=== PATIENT | female | born 1955 | race Caucasian/White ===

== ENCOUNTER 2017-12-29 15:14 | Outpatient (CLI) | payer BC | END 2017-12-29 15:15 | disposition home or self-care (01) | LOC: BICMAMMO 15:14 | PROVIDERS: ATTEND Family Medicine | DX: Z12.31 Encounter for screening mammogram for malignant neoplasm of breast (principal); Z80.3 Family history of malignant neoplasm of breast | CPT/HCPCS: 77063; 77067 ==

== ENCOUNTER 2019-06-14 07:15 | Emergency (ER) | payer BC ==
--- NOTE | 2019-06-14 08:26 | CT ---
CT BRAIN WITHOUT CONTRAST: HISTORY: Trauma, headache FINDINGS: No evidence of acute infarct, hemorrhage, midline shift or abnormal extra-axial fluid collections is seen. The ventricular size is appropriate and the basilar cisterns are patent. The bony calvarium is intact. The visualized paranasal sinuses and mastoid air cells are well aerated. There is a scalp contusion in the right frontal region. IMPRESSION: No CT evidence of acute intracranial process.
--- NOTE | 2019-06-14 08:28 | CT ---
CT CERVICAL SPINE WITH CORONAL AND SAGITTAL REFORMATIONS AND NO IV CONTRAST: HISTORY: Fall, neck pain FINDINGS: Multilevel degenerative changes are present. No fracture, subluxation or facet malalignment is identified. No prevertebral soft tissue swelling is apparent. The visualized lung apices are unremarkable. IMPRESSION: No CT evidence for fracture or traumatic subluxation.
[2019-06-14] MEDS ORDERED: Acetaminophen 325 MG TAB ONE (08:34)
[2019-06-14] MEDS ORDERED: Adacel (T-DAP) 0.5 ML SYRINGE ONE (08:34)
--- NOTE | 2019-06-14 08:54 | RAD ---
TWO VIEWS OF THE LEFT FOREARM: DATE: 06/14/2019. COMPARISON: None. HISTORY: Fall, trauma, pain. FINDINGS: No displaced fracture or evidence of dislocation. IMPRESSION: No acute osseous abnormality. POS: [facility]
--- NOTE | 2019-06-14 08:54 | RAD ---
FOUR VIEWS OF THE LEFT KNEE: DATE: 06/14/2019. COMPARISON: None. HISTORY: Fall, trauma, pain. FINDINGS: There is no knee joint effusion, displaced fracture, or evidence of dislocation. IMPRESSION: No acute fracture or dislocation. POS: [facility]
--- NOTE | 2019-06-14 08:55 | RAD ---
LEFT HAND 3 VIEWS: DATE: 06/14/2019. COMPARISON: None. HISTORY: Fall, trauma, pain. FINDINGS: Scattered areas of degenerative change are noted within the 2nd through 5th fingers with areas of an nt space narrowing and osteophyte formation. No displaced fracture or dislocation. No radiopaque fo reign body or subcutaneous gas. IMPRESSION: No displaced fracture or evidence of dislocation is appreciated. POS: [facility]
--- NOTE | 2019-06-14 11:20 | MRI ---
MRI cervical spine noncontrast HISTORY: Fall. Neck injury. COMPARISON: CT 06/14/2019. FINDINGS: Vertebral body heights are maintained. Disc hydration is intact. Vertebral body heights wit hin normal limits. Cervicothoracic junction is intact. No edematous signal or fluid collections associated with the osseous structures or soft tissues. C2-3: Mild osteophytosis. Central canal and neural foramina are patent. C3-4: Mild posterior osteophyte/disc complex. Osteophytosis of the facets. Central canal is patent. M oderate right and mild left foraminal stenoses. C4-5: Disc space narrowing and minimal degenerative retrolisthesis. Posterior osteophyte/disc complex and circumferential degenerative changes. Moderate stenosis of the central canal. Severe stenosis of each neural foramen. C5-6: Disc space narrowing and minimal degenerative retrolisthesis. Posterior osteophyte/disc complex and circumferential degenerative changes. There is severe central canal stenosis with circumferential compression of the spinal cord at this level. No abnormal signal is evident within th e cord. Very severe stenosis of each neural foramen. C6-7: Mild disc space narrowing. Posterior osteophyte/disc complex and circumferential degenerative c hanges. Moderate to severe stenosis of the central canal. Moderate right and severe left foraminal stenoses. C7-T1: Mild osteophytosis. Central canal and neural foramina are patent. IMPRESSION: No acute traumatic injury is demonstrated. Severe multilevel degenerative changes, with central canal and foraminal stenoses most severe at the C5-6 level. No evidence of myelomalacia.
== END 2019-06-14 13:11 | disposition home or self-care (01) ==
LOC: ERS 07:15
DX: S09.90XA Unspecified injury of head, initial encounter (principal); S00.03XA Contusion of scalp, initial encounter; S80.02XA Contusion of left knee, initial encounter; S80.01XA Contusion of right knee, initial encounter; S00.31XA Abrasion of nose, initial encounter; M79.642 Pain in left hand; R20.2 Paresthesia of skin; I10 Essential (primary) hypertension; Z87.891 Personal history of nicotine dependence; Z23 Encounter for immunization; W01.0XXA Fall on same level from slipping, tripping and stumbling without subsequent striking against object, initial encounter; Y92.242 Post office as the place of occurrence of the external cause
CPT/HCPCS: 70450; 72125; 72141; 90471; 90715; 93005; L0120

== ENCOUNTER 2020-02-15 14:57 | Outpatient (CLI) | payer BC ==
--- NOTE | 2020-02-15 15:30 | BD ---
EXAM: DEXA bone density examination HISTORY: 64-year-old postmenopausal female for screening COMPARISON: None FINDINGS: L1--bone mineral density 0.877 g/sq cm; T score -1.0 L2--bone mineral density 0.935 g/sq cm; T score -0.8 L3--bone mineral density 0.950 g/sq cm; T score -1.2 L4--bone mineral density 0.885 g/sq cm; T score -1.6 Total L1-L4--bone mineral density 0.912 g/sq cm; T score -1.2 Left femoral neck--bone mineral density0.700; T score -1.3 Total proximal left femur--bone mineral density 0.958; T score 0.1 IMPRESSION: Osteopenia. This patient has a 10 year WHO fracture risk of a major osteoporotic fracture of 8.5% and of a hip fracture of 0.8%.
== END 2020-02-15 14:58 | disposition home or self-care (01) ==
LOC: BICMAMMO 14:57
PROVIDERS: ATTEND Orthopaedic Surgery
DX: N95.9 Unspecified menopausal and perimenopausal disorder (principal); M85.89 Other specified disorders of bone density and structure, multiple sites
CPT/HCPCS: 77080

== ENCOUNTER 2021-08-27 07:58 | Inpatient (IN) | payer MEDICARE, BC ==
[2021-08-27] MEDS ORDERED: Ketamine 50 MG/ML (10ML VIAL) ONE (08:36)
[2021-08-27 08:45] LABS: #Basophils 0.1 thou/uL (0.0-0.2); #Eosinphils 0.1 thou/uL (0.0-0.7); #Lymphocytes 3.3 thou/uL (1.20-3.40); #Monocytes 0.4 thou/uL (0.11-0.59); #Neutrophils 3.8 thou/uL (1.40-6.50); %Basophils 1.4 % (0.0-1.0); %Eosinophils 1.7 % (0.0-10.0); %Lymphocytes 43.3 % (21.0-51.0); %Neutrophils 48.6 % (42.0-75.0); Hemoglobin 12.6 g/dL (12.0-16.0); Mean Corpuscular HGB CONC 32.4 g/dL (32.0-36.0); Mean Corpuscular Hemoglobin 31.1 pg (27.0-31.0); Mean Corpuscular Volume 95.9 fL (78.0-98.0); Mean Platelet Volume 9.5 fL (7.4-10.4); Platelet Count 192 thou/uL (130-400); RBC Distribution Width 11.7 % (11.5-14.5); Red Blood Cell (RBC) Count 4.06 mill/uL (4.20-5.40); White Blood Cell (WBC) Count 7.7 thou/uL (4.8-10.8)
[2021-08-27 09:15] LABS: ALT (SGPT) 11 U/L (8-55); AST (SGOT) 7 U/L (5-34); Albumin 4.1 g/dL (3.4-4.8); Alkaline Phosphatase 85 U/L (40-110); Anion Gap 12 mmol/L (10-20); BUN (Urea Nitrogen) 20 mg/dL (9.8-20.1); Bilirubin, Total 0.5 mg/dL (0.2-1.2); Calc. Creatinine Clearance 0 mL/min (70-130); Carbon Dioxide 28 mmol/L (23-31); Chloride 104 mmol/L (98-107); Glucose 126 mg/dL (80-115); Potassium 3.3 mmol/L (3.5-5.1); Protein, Total 7.1 g/dL (5.8-8.1); Sodium 141 mmol/L (136-145)
[2021-08-27] MEDS ORDERED: Ondansetron PF 4 MG/2 ML Vial ONE ×3 (09:27→14:26)
[2021-08-27] MEDS ORDERED: hydrALAZINE 20 MG/ML VIAL SLOW IVP PRN (09:54)
[2021-08-27] MEDS ORDERED: Ondansetron PF 4 MG/2 ML Vial IVP PRN (09:54)
[2021-08-27] MEDS ORDERED: Dextrose 5% in Water 1,000 ML IV PRN (09:54)
[2021-08-27] MEDS ORDERED: Morphine 4 MG/ML VIAL SLOW IVP PRN (09:54)
[2021-08-27] MEDS ORDERED: Dextrose 50% Abboject 50 ML SYRINGE SLOW IVP PRN (09:54)
[2021-08-27] MEDS ORDERED: Cyclobenzaprine 10 MG TAB PO PRN (09:57)
[2021-08-27] MEDS ORDERED: traMADol HCl 50 MG TAB PO PRN ×2 (09:57)
[2021-08-27] MEDS ORDERED: Sodium Chloride 0.9% 1,000 ML IV SCH (10:00)
[2021-08-27 10:51] LABS: Magnesium 2.1 mg/dL (1.6-2.6); Phosphorus 3.4 mg/dL (2.3-4.7)
[2021-08-27 11:52] LABS: SARS-CoV-2 NAA Rapid Test Not Detected (NotDetected)
[2021-08-27] MEDS ORDERED: CEFAZOLIN 2 GM in Sodium Chloride 0.9% 100 ML IVPB SCH (13:00)
[2021-08-27] MEDS ORDERED: Potassium Phosphate 30 MMOL in Sodium Chloride 0.9% 250 ML 250 ML IVPB SCH (13:15)
[2021-08-27] MEDS ORDERED: Midazolam HCl 2 mg/2 ml Vial ONE (13:21)
[2021-08-27] MEDS ORDERED: Fentanyl 100 MCG/2 ML VIAL ONE (13:21)
[2021-08-27] MEDS: Acetaminophen 500 MG TAB PO SCH ×3 (13:28→19:23)
[2021-08-27 13:39] VITALS: BMI 33.6
[2021-08-27] MEDS ORDERED: Promethazine HCl 25 MG/ML VIAL ONE ×2 (14:14→16:22)
[2021-08-27] MEDS ORDERED: Propofol 1,000 MG/100 ML VIAL IV ONE (14:14)
[2021-08-27] MEDS ORDERED: CEFAZOLIN 2 GM VIAL ONE (14:16)
[2021-08-27] MEDS ORDERED: Sodium Chloride 0.9% 100 ML ONE (14:16)
[2021-08-27] MEDS ORDERED: PHENYLEPHRINE-NS 100 MCG/ML 10 ML SYRINGE ONE (14:26)
[2021-08-27] MEDS ORDERED: Dexamethasone 20 MG/5 ML VIAL ONE (14:26)
[2021-08-27] MEDS ORDERED: Bupivacaine HCl 0.5%/Epinephrine 1:200,000/PF 30 ml Vial ONE (14:26)
[2021-08-27] MEDS ORDERED: PROPOFOL 200 MG/20 ML VIAL ONE (14:26)
[2021-08-27] MEDS ORDERED: Ketorolac Tromethamine 30 MG/ML VIAL ONE (14:26)
[2021-08-27] MEDS ORDERED: Xylocaine 1% w/ Epi 1:100K 10 ML VIAL ONE (14:50)
[2021-08-27] MEDS: Ibuprofen 200 MG TAB PO SCH ×2 (15:10→19:25)
[2021-08-27] MEDS ORDERED: Promethazine HCl 25 MG/ML VIAL IVPB PRN (16:00)
[2021-08-27] MEDS ORDERED: PACU-Morphine 4MG/ML VIAL SLOW IVP PRN (16:00)
[2021-08-27] MEDS ORDERED: Ondansetron HCl/PF 4 MG/2 ML Vial IVP PRN (16:00)
[2021-08-27] MEDS ORDERED: Promethazine HCl 25 MG/ML VIAL IM PRN (16:00)
[2021-08-27] MEDS ORDERED: HYDROmorphone 2 MG/ML VIAL SLOW IVP PRN (16:00)
[2021-08-27] MEDS: Gabapentin 100 MG CAP PO SCH ×2 (16:07→19:24)
[2021-08-27] MEDS ORDERED: Meperidine HCl/PF 25 MG/ML VIAL ONE (16:13)
[2021-08-27] MEDS: Senokot S 8.6-50 MG TAB PO SCH (19:17)
[2021-08-27] MEDS: CEFAZOLIN 2 GM in Sodium Chloride 0.9% 100 ML IVPB SCH (19:24)
[2021-08-27] MEDS ORDERED: Famotidine 20 MG TAB PO SCH (21:00)
[2021-08-28] MEDS: Acetaminophen 500 MG TAB PO SCH ×4 (05:45→20:18)
[2021-08-28] MEDS: Levothyroxine Sodium 25 MCG TAB PO SCH (05:45)
[2021-08-28] MEDS: CEFAZOLIN 2 GM in Sodium Chloride 0.9% 100 ML IVPB SCH (05:45)
[2021-08-28] MEDS: Ibuprofen 200 MG TAB PO SCH ×3 (05:45→20:19)
[2021-08-28 06:24] LABS: #Lymphocytes 1.2 thou/uL (1.20-3.40); #Monocytes 0.3 thou/uL (0.11-0.59); #Neutrophils 9.5 thou/uL (1.40-6.50); %Basophils 0.4 % (0.0-1.0); %Lymphocytes 10.5 % (21.0-51.0); %Monocytes 2.9 % (0.0-10.0); %Neutrophils 86.2 % (42.0-75.0); Hemoglobin 10.9 g/dL (12.0-16.0); Mean Corpuscular HGB CONC 33.2 g/dL (32.0-36.0); Mean Corpuscular Hemoglobin 30.2 pg (27.0-31.0); Mean Platelet Volume 6.3 fL (7.4-10.4); Platelet Count 209 thou/uL (130-400); RBC Distribution Width 14.1 % (11.5-14.5)
[2021-08-28 06:52] LABS: Anion Gap 13 mmol/L (10-20); BUN (Urea Nitrogen) 19 mg/dL (9.8-20.1); Calc. Creatinine Clearance 89 mL/min (70-130); Carbon Dioxide 27 mmol/L (23-31); Chloride 101 mmol/L (98-107); Glucose 133 mg/dL (80-115); Magnesium 1.9 mg/dL (1.6-2.6); Phosphorus 4.1 mg/dL (2.3-4.7); Potassium 3.6 mmol/L (3.5-5.1); Sodium 137 mmol/L (136-145)
[2021-08-28] MEDS: Gabapentin 100 MG CAP PO SCH ×3 (08:34→20:18)
[2021-08-28] MEDS: Senokot S 8.6-50 MG TAB PO SCH ×2 (08:34→19:53)
[2021-08-28] MEDS: Polyethylene Glycol 3350 17 GM Packet PO SCH (08:35)
[2021-08-28] MEDS ORDERED: Scopolamine 1.5 mg/72 hour Patch TD SCH (11:00)
[2021-08-28] MEDS ORDERED: Enoxaparin Sodium 40 MG/0.4 ML SYRINGE SC SCH (21:00)
[2021-08-28] MEDS ORDERED: Rosuvastatin 10 MG TAB PO SCH (21:00)
[2021-08-28] MEDS ORDERED: Calcium Carbonate 500 MG ChewTAB PO PRN (23:15)
[2021-08-29] MEDS: Acetaminophen 500 MG TAB PO SCH ×2 (04:46→09:32)
[2021-08-29] MEDS: Levothyroxine Sodium 25 MCG TAB PO SCH (05:25)
[2021-08-29] MEDS: Ibuprofen 200 MG TAB PO SCH ×2 (05:25→14:17)
[2021-08-29 06:34] LABS: #Eosinphils 0.1 thou/uL (0.0-0.7); #Lymphocytes 2.8 thou/uL (1.20-3.40); #Monocytes 0.7 thou/uL (0.11-0.59); %Basophils 0.6 % (0.0-1.0); %Eosinophils 1.1 % (0.0-10.0); %Lymphocytes 32.3 % (21.0-51.0); Hemoglobin 10.1 g/dL (12.0-16.0); Mean Corpuscular HGB CONC 32.5 g/dL (32.0-36.0); Mean Corpuscular Hemoglobin 31.5 pg (27.0-31.0); Mean Corpuscular Volume 96.8 fL (78.0-98.0); Mean Platelet Volume 9.7 fL (7.4-10.4); Platelet Count 161 thou/uL (130-400); RBC Distribution Width 11.6 % (11.5-14.5); Red Blood Cell (RBC) Count 3.22 mill/uL (4.20-5.40); White Blood Cell (WBC) Count 8.6 thou/uL (4.8-10.8)
[2021-08-29 07:10] LABS: Anion Gap 9 mmol/L (10-20); BUN (Urea Nitrogen) 20 mg/dL (9.8-20.1); Calc. Creatinine Clearance 81 mL/min (70-130); Carbon Dioxide 33 mmol/L (23-31); Chloride 97 mmol/L (98-107); Glucose 94 mg/dL (80-115); Magnesium 2.2 mg/dL (1.6-2.6); Phosphorus 3.2 mg/dL (2.3-4.7); Potassium 3.2 mmol/L (3.5-5.1); Sodium 136 mmol/L (136-145)
[2021-08-29] MEDS: Gabapentin 100 MG CAP PO SCH ×2 (08:37→14:16)
[2021-08-29] MEDS: Polyethylene Glycol 3350 17 GM Packet PO SCH (08:38)
[2021-08-29] MEDS: Senokot S 8.6-50 MG TAB PO SCH (08:38)
[2021-08-29] MEDS ORDERED: Potassium Chloride 20 MEQ TAB PO SCH (09:00)
[2021-08-29] MEDS ORDERED: HYDROcodone/Acetaminophen 5/325 mg Tablet PO PRN (09:46)
[2021-08-29] MEDS ORDERED: Acetaminophen 325 MG TAB PO SCH (10:00)
[2021-08-29 15:47] VITALS: BP 116/55; TEMP 97.8
== END 2021-08-29 16:21 | DRG 494 ==
LOC: ERS 07:58 → T4-A 09:30
PROVIDERS: ADMIT Specialist; ATTEND Specialist
PROC: 0QSH04Z Reposition Left Tibia with Internal Fixation Device, Open Approach (ICD-10-PCS; principal; 2021-08-27)
PROC: 0QSK04Z Reposition Left Fibula with Internal Fixation Device, Open Approach (ICD-10-PCS; 2021-08-27)
PROC: 0QSJXZZ Reposition Right Fibula, External Approach (ICD-10-PCS; 2021-08-27)
DX: S82.842A Displaced bimalleolar fracture of left lower leg, initial encounter for closed fracture (principal); S82.831A Other fracture of upper and lower end of right fibula, initial encounter for closed fracture; I10 Essential (primary) hypertension; K21.9 Gastro-esophageal reflux disease without esophagitis; M54.9 Dorsalgia, unspecified; E87.6 Hypokalemia; R42 Dizziness and giddiness; W18.30XA Fall on same level, unspecified, initial encounter; G89.29 Other chronic pain; E03.9 Hypothyroidism, unspecified; Z20.822 Contact with and (suspected) exposure to COVID-19; Z98.890 Other specified postprocedural states; Z98.891 History of uterine scar from previous surgery; Z72.89 Other problems related to lifestyle; Z87.891 Personal history of nicotine dependence; Z88.5 Allergy status to narcotic agent; Z79.899 Other long term (current) drug therapy; Z98.1 Arthrodesis status; Z98.42 Cataract extraction status, left eye; Z98.41 Cataract extraction status, right eye; Z88.8 Allergy status to other drugs, medicaments and biological substances
CPT/HCPCS: 27810; 36415; 71045; 76000; 80048; 80053; 83735; 84100; 85025; 93005; 96374; 96376; 99152; C1713; C1874; G0390; J1100; J1650; J1885; J2175; J2250; J2405; J2550; J2704; J3010; J3490; J7050; U0002

== ENCOUNTER 2022-04-09 08:50 | Outpatient (CLI) | payer MEDICARE, BC | END 2022-04-09 08:51 | disposition home or self-care (01) | LOC: BICMAMMO 08:50 | PROVIDERS: ATTEND Family Medicine | DX: Z12.31 Encounter for screening mammogram for malignant neoplasm of breast (principal); M85.852 Other specified disorders of bone density and structure, left thigh; M85.851 Other specified disorders of bone density and structure, right thigh | CPT/HCPCS: 77063; 77067; 77080 ==

== ENCOUNTER 2023-02-13 11:05 | Outpatient (CLI) | payer MEDICARE, BC ==
[2023-02-13] MEDS ORDERED: Magnevist 469MG/ML 20 ML VIAL ONE (13:58)
== END 2023-02-13 11:06 | disposition home or self-care (01) ==
LOC: MRI 11:05
PROVIDERS: ATTEND Psychiatry & Neurology Neurology
DX: R55 Syncope and collapse (principal); I07.1 Rheumatic tricuspid insufficiency; R93.1 Abnormal findings on diagnostic imaging of heart and coronary circulation; R90.82 White matter disease, unspecified; H74.8X1 Other specified disorders of right middle ear and mastoid
CPT/HCPCS: 70553; 82565; 93306

== ENCOUNTER 2023-02-16 12:15 | Outpatient (CLI) | payer MEDICARE, BC | END 2023-02-16 12:16 | disposition home or self-care (01) | PROVIDERS: ATTEND Psychiatry & Neurology Neurology | DX: R55 Syncope and collapse (principal) | CPT/HCPCS: 93225; 93226 ==

== ENCOUNTER 2023-04-22 09:57 | Outpatient (CLI) | payer MEDICARE | END 2023-04-22 09:58 | disposition home or self-care (01) | LOC: BICULT 09:57 → ULT 09:58 | PROVIDERS: ATTEND Psychiatry & Neurology Neurology | DX: R55 Syncope and collapse (principal) | CPT/HCPCS: 93880 ==